=== PATIENT | male | born 1980 | race Caucasian/White ===

== ENCOUNTER 2016-09-23 20:06 | Emergency (ER) | payer OTHER ==
[2016-09-23 20:32] VITALS: TEMP 97.9; O2SAT 96
[2016-09-23] MEDS ORDERED: HYDROCODONE/APAP 5/325 TAB ONE (20:44)
[2016-09-23] MEDS ORDERED: HYDROCODONE/APAP 5/325 TAB PO ONE (20:45)
--- NOTE | 2016-09-23 20:50 | EDPHY ---
H & P Stated Complaint: L hip pain Time Seen by Provider: 09/23/16 20:10 HPI/ROS: CHIEF COMPLAINT: Weakness with inability to transfer HISTORY OF PRESENT ILLNESS: The patient is brought in by paramedics and fire department after he was unable to safely ambulate at his house. The patient has a history of morbid obesity. He reportedly fell out of bed earlier today a was unable to get up. He contacted paramedics for assistance with a lift. The patient typically walks with a walker which he was unable to do once paramedics and the fire mid assisted him to an upright position. In the ED, the patient tells me that he is having generalized lower extremity pain throughout his left leg. The patient was hospitalized at our facility 2 years ago for complaints of left knee pain and inability to ambulate. The patient was eventually placed into a rehab facility for some time prior to being placed to his current apartment. REVIEW OF SYSTEMS: A comprehensive 10 point review of systems is otherwise negative aside from elements mentioned in the history of present illness. Source: Patient Exam Limitations: No limitations - Personal History Current Tetanus Diphtheria and Acellular Pertussis (TDAP): Yes - Medical/Surgical History Hx Asthma: No Hx Chronic Respiratory Disease: No Hx Diabetes: No Hx Cardiac Disease: No Hx Renal Disease: No Hx Cirrhosis: No Hx Alcoholism: No Hx HIV/AIDS: No Hx Splenectomy or Spleen Trauma: No Other PMH: SLEEP APNEA//appy 2000, HTN, morbid obesity - Social History Smoking Status: Current some day smoker - Physical Exam Exam: General Appearance: Alert, morbidly obese, no acute distress Eyes: Pupils equal and round no pallor or injection ENT, Mouth: Mucous membranes moist Respiratory: Distant breath sounds Cardiovascular: Distant cardiac sounds Gastrointestinal: Protuberant, obese, no focal tenderness Neurological: A&O, normal motor function, normal sensory exam, normal cranial nerves Skin: Warm and dry, no rashes Musculoskeletal: Neck is supple nontender Extremities: Tenderness to palpation throughout the left lower extremity, no obvious deformity Psychiatric: Patient is oriented X 3, there is no agitation Constitutional: Initial Vital Signs Temperature (C) 36.6 C 09/23/16 20:30 Heart Rate 86 09/23/16 20:30 Respiratory Rate 20 09/23/16 20:30 Blood Pressure 136/86 H 09/23/16 20:30 O2 Sat (%) 96 09/23/16 20:30 O2 Delivery Mode B[place]by Allergies/Adverse Reactions: No Known Allergies Allergy (Unverified 09/23/16 20:25) Home Medications: Medication Instructions Recorded Carvedilol 09/23/16 Lisinopril 09/23/16 Naproxen 09/23/16 Medical Decision Making ED Course/Re-evaluation: The patient presents to the ED with inability to transfer following a ground level fall. Patient's presentation is complicated by morbid obesity. We currently do not have a hospital bed that is capable of supporting the patient. The patient is currently on a ambulance pram with a restraining Wheeler and around him. The patient will require admission to the hospital secondary to his inability to safely ambulate. I am unable to fully workup his lower extremity pain complaints based upon my inability to move the patient and are lack of a bed capable of supporting the patient. The patient does usually get care at [facility]. I did contact the [facility] physician informing them of my initial evaluation and the need for hospitalization. The patient does consent to transfer to [facility] as he typically gets care there and he likely will require placement into a rehab facility which would be coordinated through their services. The patient may require additional imaging for further evaluation of his lower extremity pain. The patient has been accepted for admission by [facility] at [facility]. I have filled out the [facility] transfer sheet. - Data Points Laboratory Results: Laboratory Results 09/23/16 20:40 09/23/16 20:40 WBC 7.94 10^3/uL (3.80-9.50) RBC 6.16 10^6/uL (4.40-6.38) Hgb 15.8 g/dL (13.7-17.5) Hct 53.4 H % (40.0-51.0) MCV 86.7 fL (81.5-99.8) MCH 25.6 L pg (27.9-34.1) MCHC 29.6 L g/dL (32.4-36.7) RDW 16.6 H % (11.5-15.2) Plt Count 230 10^3/uL (150-400) MPV 9.1 fL (8.7-11.7) Neut % (Auto) 68.3 % (39.3-74.2) Lymph % (Auto) 20.3 % (15.0-45.0) [place] % (Auto) 7.4 % (4.5-13.0) Eos % (Auto) 2.8 % (0.6-7.6) Baso % (Auto) 0.9 % (0.3-1.7) Nucleat RBC Rel Count 0.0 % (0.0-0.2) Absolute Neuts (auto) 5.43 10^3/uL (1.70-6.50) Absolute Lymphs (auto) 1.61 10^3/uL (1.00-3.00) Absolute Monos (auto) 0.59 10^3/uL (0.30-0.80) Absolute Eos (auto) 0.22 10^3/uL (0.03-0.40) Absolute Basos (auto) 0.07 10^3/uL (0.02-0.10) Absolute Nucleated RBC 0.00 10^3/uL (0-0.01) Immature Gran % 0.3 % (0.0-1.1) Immature Gran # 0.02 10^3/uL (0.00-0.10) Sodium Pending Potassium Pending Chloride Pending Carbon Dioxide Pending Anion Gap Pending BUN Pending Creatinine Pending Estimated GFR Pending Glucose Pending Calcium Pending Medications Given: Discontinued Medications Acetaminophen/Hydrocodone Bitart ([place] 5/325) 2 tab PO EDNOW ONE Stop: 09/23/16 20:46 Last Admin: 09/23/16 21:07 Dose: 2 tab Departure - Departure Disposition: Acute Care Hospital Not [facility] Clinical Impression: Morbid obesity, Pain of left lower extremity Condition: Fair
[2016-09-23 20:54] LABS: % IMMATURE GRANULYOCYTES 0.3 % (0.0-1.1); ABSOLUTE IMMATURE GRANULOCYTES 0.02 10^3/uL (0.00-0.10); ADD DIFF? NO; ADD MORPH? NO; ADD SCAN? NO; ATYPICAL LYMPHOCYTE FLAG 0 (0-99); FRAGMENT RBC FLAG 0 (0-99); HEMATOCRIT 53.4 % (40.0-51.0); HEMOGLOBIN 15.8 g/dL (13.7-17.5); LEFT SHIFT FLG 0 (0-99); LIPEMIA HEMOLYSIS FLAG 70 (0-99); MEAN CELL HEMOGLOBIN 25.6 pg (27.9-34.1); MEAN CELL HEMOGLOBIN CONCENTR. 29.6 g/dL (32.4-36.7); MEAN CELL VOLUME 86.7 fL (81.5-99.8); MEAN PLATELET VOLUME 9.1 fL (8.7-11.7); PLATELET CLUMPS FLAG 0 (0-99); PLATELET COUNT 230 10^3/uL (150-400); RED BLOOD CELL COUNT 6.16 10^6/uL (4.40-6.38); RED CELL DISTRIBUTION WIDTH 16.6 % (11.5-15.2)
[2016-09-23 21:14] LABS: ANION GAP 10 mEq/L (8-16); CALCIUM 8.6 mg/dL (8.5-10.4); CARBON DIOXIDE 36 mEq/l (22-31); CHLORIDE 97 mEq/L (97-110); CREATININE 0.9 mg/dL (0.7-1.3); GLOMERULAR FILTRATION RATE > 60; GLUCOSE 115 mg/dL (70-100); POTASSIUM 4.8 mEq/L (3.5-5.2); SODIUM 143 mEq/L (134-144)
[2016-09-23 21:19] VITALS: RESP 18
[2016-09-23 23:09] VITALS: BP 154/90; PULSE 76
== END 2016-09-23 23:09 | disposition short-term general hospital (02) ==
LOC: EDUNIT# → UNDOADMIN 21:02
DX: E66.01 Morbid (severe) obesity due to excess calories (principal); M79.662 Pain in left lower leg; I10 Essential (primary) hypertension; F17.200 Nicotine dependence, unspecified, uncomplicated